=== PATIENT | female | born 1965 | race Caucasian/White ===

== ENCOUNTER 2024-03-25 22:27 | Emergency (ER) | payer SELFPAY ==
[~2024-03-25] VITALS: Ht 160 cm; Wt 50.0 kg
[2024-03-25] MEDS ORDERED: Diph, Acellular Pertussis, Tet 0.5 ML/VIAL (Tdap) SDV IM ONE (23:20)
[2024-03-25 23:27] VITALS: BP 133/71
== END 2024-03-26 06:28 | disposition home or self-care (01) | DRG 156 ==
LOC: ED 22:27
PROC: 0HQ1XZZ Repair Face Skin, External Approach (ICD-10-PCS; principal; 2024-03-25)
DX: S01.21XA Laceration without foreign body of nose, initial encounter (principal); W01.0XXA Fall on same level from slipping, tripping and stumbling without subsequent striking against object, initial encounter; Y92.410 Unspecified street and highway as the place of occurrence of the external cause
CPT/HCPCS: 90715